=== PATIENT | female | born 1995 | race Caucasian/White ===

== ENCOUNTER 2017-01-26 19:51 | Emergency (ER) | payer MEDICAID, OTHER ==
[2017-01-26 19:53] VITALS: BP 139/65; PULSE 94; RESP 16; TEMP 98.6; O2SAT 97
--- NOTE | 2017-01-26 20:14 | PD ---
HPI Chief Complaint: Abdominal Pain Time Seen by Provider: 20:00 Travel History International Travel<30 days: No Contact w/Intl Traveler<30days: No Traveled to known affect area: No History of Present Illness HPI 21-year-old female presents for evaluation of abdominal pain. For the past 2 weeks she has had pain in the right upper quadrant region of the abdomen or the pain got worse over the past few days prompted evaluation. The pain is a sharp pain that is worse with coughing and moving primarily. The pain is relieved when she is sitting still. Pain is not postprandial. Denies nausea, vomiting, flank pain, dysuria, fevers, chills, vaginal bleeding or discharge. She has a slight cough for the past few days. She has no other complaints at this time. [facility] [place] Past Medical History Medical History: Denies Significant Hx Tetanus Vaccination: > 5 Years Influenza Vaccination: No ?: Not LMP: 01/03/17 Past Surgical History Surgical History: No Previous Surgery Social History Alcohol Use: Yes (RARELY ) Tobacco Use: No Substance Use: No Allergies-Medications (Allergen,Severity, Reaction): Coded Allergies: No Known Allergies (Unverified , 01/26/17) Reported Meds & Prescriptions Reported Meds & Active Scripts Active Naproxen 500 Mg Tab 500 Mg PO BID 10 Days Keflex (Cephalexin) 500 Mg Capsule 500 Mg PO Q8H 7 Days Review of Systems Except as stated in HPI: all other systems reviewed are Neg Physical Exam Narrative GENERAL: Well-developed well-nourished female in no acute distress SKIN: Warm and dry. HEAD: Atraumatic. Normocephalic. EYES: Pupils equal and round. No scleral icterus. No injection or drainage. ENT: No nasal bleeding or discharge. Mucous membranes pink and moist. NECK: Trachea midline. No JVD. CARDIOVASCULAR: Regular rate and rhythm. No murmur appreciated. RESPIRATORY: No accessory muscle use. Clear to auscultation. Breath sounds equal bilaterally. No crackles no wheezing or rhonchi. GASTROINTESTINAL: Abdomen soft, focal mild right upper quadrant tenderness without guarding. MUSCULOSKELETAL: No obvious deformities. Some tenderness to palpation to the right lower rib cage margin. NEUROLOGICAL: Awake and alert. No obvious cranial nerve deficits. Motor grossly within normal limits. Normal speech. PSYCHIATRIC: Appropriate mood and affect; insight and judgment normal. Data Data Last Documented VS Vital Signs Date Time Temp Pulse Resp B/P (MAP) Pulse Ox O2 Delivery O2 Flow Rate FiO2 01/26/17 19:53 98.6 94 16 139/65 (89) 97 Orders Orders Complete Blood Count With Diff (01/26/17 20:08) Comprehensive Metabolic Panel (01/26/17 20:08) Lipase (01/26/17 20:08) Urinalysis - C+S If Indicated (01/26/17 20:08) Us Abdomen Gallbladder (01/26/17 ) Ed Urine Pregnancytest Poc (01/26/17 20:08) Ketorolac Inj (Toradol Inj) (01/26/17 20:15) Iv Access Insert/Monitor (01/26/17 20:08) Urine Culture (01/26/17 20:40) Labs Laboratory Tests Test 01/26/17 20:31 01/26/17 20:40 White Blood Count 13.2 TH/MM3 Red Blood Count 4.52 MIL/MM3 Hemoglobin 12.2 GM/DL Hematocrit 38.1 % Mean Corpuscular Volume 84.3 FL Mean Corpuscular Hemoglobin 26.9 PG Mean Corpuscular Hemoglobin Concent 32.0 % Red Cell Distribution Width 13.5 % Platelet Count 358 TH/MM3 Mean Platelet Volume 9.3 FL Neutrophils (%) (Auto) 77.6 % Lymphocytes (%) (Auto) 15.5 % Monocytes (%) (Auto) 6.0 % Eosinophils (%) (Auto) 0.6 % Basophils (%) (Auto) 0.3 % Neutrophils # (Auto) 10.3 TH/MM3 Lymphocytes # (Auto) 2.1 TH/MM3 Monocytes # (Auto) 0.8 TH/MM3 Eosinophils # (Auto) 0.1 TH/MM3 Basophils # (Auto) 0.0 TH/MM3 CBC Comment DIFF FINAL Differential Comment Blood Urea Nitrogen 9 MG/DL Creatinine 0.62 MG/DL Random Glucose 100 MG/DL Total Protein 7.8 GM/DL Albumin 3.4 GM/DL Calcium Level 8.9 MG/DL Alkaline Phosphatase 71 U/L Aspartate Amino Transf (AST/SGOT) 10 U/L Alanine Aminotransferase (ALT/SGPT) LESS THAN 6 U/L Total Bilirubin 0.3 MG/DL Sodium Level 140 MEQ/L Potassium Level 3.6 MEQ/L Chloride Level 106 MEQ/L Carbon Dioxide Level 26.1 MEQ/L Anion Gap 8 MEQ/L Estimat Glomerular Filtration Rate 123 ML/MIN Lipase 139 U/L Urine Color YELLOW Urine Turbidity HAZY Urine pH 6.0 Urine Specific [place] 1.031 Urine Protein 30 mg/dL Urine Glucose (UA) NEG mg/dL Urine Ketones NEG mg/dL Urine Occult Blood NEG Urine Nitrite NEG Urine Bilirubin NEG Urine Urobilinogen 2.0 MG/DL Urine Leukocyte Esterase LARGE Urine RBC 6 /hpf Urine WBC 23 /hpf Urine Squamous Epithelial Cells 37 /hpf Urine Amorphous Sediment RARE Urine Mucus MANY /lpf Microscopic Urinalysis Comment CULTURE INDICATED MDM Medical Decision Making Medical Screen Exam Complete: Yes Emergency Medical Condition: Yes Medical Record Reviewed: Yes Differential Diagnosis Muscle strain, costochondritis, biliary colic, cholecystitis, renal stone, colitis, appendicitis Narrative Course This is a 21-year-old female who is a cough for several days he has had pain in the right lower rib cage/right upper quadrant is worse with movement and coughing and relieved when she sits still. Plan is for basic lab work, urinalysis, right upper quadrant ultrasound. Ultrasound reveals a markedly contracted gallbladder there is no evidence of any shadowing stones or cholecystitis. Her white count is slightly elevated at 13.2 with 77.6% neutrophils. Urinalysis does reveal large leukocytes with 23 wbc's with some degree of contaminant as her 37 squamous epithelial cells. Her pain very much appears musculoskeletal examination and treated as such with coarse NSAIDs. She will be given Keflex pending urine culture results. Discussed signs and symptoms noted [place] return to the emergency room. She is stable for discharge. Diagnosis Primary Impression: Rib pain on right side Additional Impressions: Right upper quadrant abdominal pain Pyuria Additional Instructions: Medication as prescribed. Avoid straining, heavy lifting. Rest. Follow-up with primary care as needed and return for any acutely no worsening symptoms such as intractable pain, fevers, persistent vomiting or diarrhea. Med/Other Pt SpecificInfo: Prescription(s) given Scripts Naproxen (Naproxen) 500 Mg Tab 500 MG PO BID for 10 Days, #20 TAB 0 Refills Prov: Alexi Blanco MD 01/26/17 Cephalexin (Keflex) 500 Mg Capsule 500 MG PO Q8H for Infection for 7 Days, #21 CAP 0 Refills Prov: Alexi Blanco MD 11/20/17 Disposition: 01 DISCHARGE HOME Condition: Stable Shannon,Cale P. PA Jan 26, 2017 20:14
[2017-01-26] MEDS ORDERED: KETOROLAC TROMETHAMINE 30 MG/ML (IVP) VIAL IV PUSH ONE (20:15)
[2017-01-26 20:50] LABS: AUTOMATED NEUTROPHIL # 10.3 TH/MM3 (1.8-7.7); BASOPHIL % 0.3 % (0.0-2.0); EOSINOPHIL # 0.1 TH/MM3 (0-0.4); EOSINOPHIL % 0.6 % (0.0-4.0); HEMATOCRIT 38.1 % (35.0-46.0); HEMO FLAGS DIFF FINAL; LYMPH % 15.5 % (9.0-44.0); LYMPHOCYTE # 2.1 TH/MM3 (1.0-4.8); MEAN CELL VOLUME 84.3 FL (80.0-100.0); MEAN CORPUSCULAR HEMOGLOBIN 26.9 PG (27.0-34.0); NEUT % 77.6 % (16.0-70.0); PLATELET COUNT 358 TH/MM3 (150-450); RED BLOOD COUNT 4.52 MIL/MM3 (4.00-5.30); RED CELL DISTRIBUTION WIDTH 13.5 % (11.6-17.2); WHITE BLOOD COUNT 13.2 TH/MM3 (4.0-11.0)
[2017-01-26 20:57] LABS: BLOOD, URINE NEG (NEG); COMMENT (UR) CULTURE INDICATED; CULTURE IF INDICATED CULTURE INDICATED; GLUCOSE,URINE NEG (NEG); KETONE, URINE NEG (NEG); MUCUS URINE MANY /lpf (OCC); NITRITE,URINE NEG (NEG); SQUAMOUS EPITHELIAL CELL URINE 37 /hpf (0-5); URINE COLOR YELLOW (YELLW/STRAW)
[2017-01-26 21:20] LABS: ALT (GPT) LESS THAN 6 U/L (9-42); ANION GAP 8 MEQ/L (5-15); AST (GOT) 10 U/L (16-38); BICARBONATE 26.1 MEQ/L (21.0-32.0); BLOOD UREA NITROGEN 9 MG/DL (7-18); CHLORIDE 106 MEQ/L (98-107); GLOMERULAR FILTRATION RATE 123 ML/MIN (>89); POTASSIUM 3.6 MEQ/L (3.5-5.1); SODIUM (NA) 140 MEQ/L (136-145)
[2017-01-26 21:23] LABS: ALKALINE PHOSPHATASE 71 U/L (45-117); TOTAL BILIRUBIN ADULT 0.3 MG/DL (0.2-1.0)
--- NOTE | 2017-01-26 21:52 | RADRPT ---
EXAM DATE/TIME: 01/26/2017 20:53 [place] COMPARISON: No previous studies available for comparison. INDICATIONS : Right upper quadrant pain. MEDICAL HISTORY : Right upper quadrant pain. SURGICAL HISTORY : None. ENCOUNTER: Initial ACUITY: 2 weeks PAIN SCORE: 6/10 LOCATION: Right upper quadrant MEASUREMENTS: LIVER: 14.7 cm length COMMON DUCT: 3 mm RIGHT KIDNEY: 9.6 x 3.8 x 3.5 cm FINDINGS: LIVER: Normal echotexture without focal lesion or ductal dilatation. Hepatopedal flow is seen in the portal vein. COMMON DUCT: No intraluminal mass or stone visualized. GALLBLADDER: The gallbladder is markedly contracted. No shadowing emanates from the lumen. No pericholecystic fl uid. Negative sonographic Hebert's sign. PANCREAS: The visualized portions are within normal limits. RIGHT KIDNEY: No evidence of hydronephrosis, stone, or mass. CONCLUSION: 1. Markedly contracted gallbladder in a fasting patient. No shadowing stones seen. 2. Normal dimension common hepatic duct. Osmany Osorio MD on January 26, 2017 at 21:42 Board Certified Radiologist. This report was verified electronically.
--- NOTE | 2017-01-26 21:57 | PD ---
Data Data Last Documented VS Vital Signs Date Time Temp Pulse Resp B/P (MAP) Pulse Ox O2 Delivery O2 Flow Rate FiO2 01/26/17 22:20 01/26/17 19:53 98.6 94 16 97 Orders Orders Complete Blood Count With Diff (01/26/17 20:08) Comprehensive Metabolic Panel (01/26/17 20:08) Lipase (01/26/17 20:08) Urinalysis - C+S If Indicated (01/26/17 20:08) Us Abdomen Gallbladder (01/26/17 ) Ed Urine Pregnancytest Poc (01/26/17 20:08) Ketorolac Inj (Toradol Inj) (01/26/17 20:15) Iv Access Insert/Monitor (01/26/17 20:08) Urine Culture (01/26/17 20:40) Ed Discharge Order (01/26/17 22:16) Labs Laboratory Tests Test 01/26/17 20:31 11 20:40 White Blood Count 13.2 TH/MM3 Red Blood Count 4.52 MIL/MM3 Hemoglobin 12.2 GM/DL Hematocrit 38.1 % Mean Corpuscular Volume 84.3 FL Mean Corpuscular Hemoglobin 26.9 PG Mean Corpuscular Hemoglobin Concent 32.0 % Red Cell Distribution Width 13.5 % Platelet Count 358 TH/MM3 Mean Platelet Volume 9.3 FL Neutrophils (%) (Auto) 77.6 % Lymphocytes (%) (Auto) 15.5 % Monocytes (%) (Auto) 6.0 % Eosinophils (%) (Auto) 0.6 % Basophils (%) (Auto) 0.3 % Neutrophils # (Auto) 10.3 TH/MM3 Lymphocytes # (Auto) 2.1 TH/MM3 Monocytes # (Auto) 0.8 TH/MM3 Eosinophils # (Auto) 0.1 TH/MM3 Basophils # (Auto) 0.0 TH/MM3 CBC Comment DIFF FINAL Differential Comment Blood Urea Nitrogen 9 MG/DL Creatinine 0.62 MG/DL Random Glucose 100 MG/DL Total Protein 7.8 GM/DL Albumin 3.4 GM/DL Calcium Level 8.9 MG/DL Alkaline Phosphatase 71 U/L Aspartate Amino Transf (AST/SGOT) 10 U/L Alanine Aminotransferase (ALT/SGPT) LESS THAN 6 U/L Total Bilirubin 0.3 MG/DL Sodium Level 140 MEQ/L Potassium Level 3.6 MEQ/L Chloride Level 106 MEQ/L Carbon Dioxide Level 26.1 MEQ/L Anion Gap 8 MEQ/L Estimat Glomerular Filtration Rate 123 ML/MIN Lipase 139 U/L Urine Color YELLOW Urine Turbidity HAZY Urine pH 6.0 Urine Specific [place] 1.031 Urine Protein 30 mg/dL Urine Glucose (UA) NEG mg/dL Urine Ketones NEG mg/dL Urine Occult Blood NEG Urine Nitrite NEG Urine Bilirubin NEG Urine Urobilinogen 2.0 MG/DL Urine Leukocyte Esterase LARGE Urine RBC 6 /hpf Urine WBC 23 /hpf Urine Squamous Epithelial Cells 37 /hpf Urine Amorphous Sediment RARE Urine Mucus MANY /lpf Microscopic Urinalysis Comment CULTURE INDICATED MDM Medical Record Reviewed: Yes Supervised Visit with YURIDIA: Yes Narrative Course CBC & BMP Diagram 01/26/17 20:31 Total Protein 7.8, Albumin 3.4, Calcium Level 8.9, Alkaline Phosphatase 71, Aspartate Amino Transf (AST/SGOT) 10 L, Alanine Aminotransferase (ALT/SGPT) LESS THAN 6 L, Total Bilirubin 0.3 Last Impressions Gall Bladder Ultrasound 01/26/17 0000 Signed Impressions: Service Date/Time: Thursday, January 26, 2017 20:53 - CONCLUSION: 1. Markedly contracted gallbladder in a fasting patient. No shadowing stones seen. 2. Normal dimension common hepatic duct. Osmany Osorio MD On exam the patient's right costal margin is somewhat tender. She reiterates pain primarily with changes of position such that a musculoskeletal etiology is considered most probable the patient is therefore ready for discharge. Return precautions discussed. Please refer Cale Ortega's note. Scripts Naproxen (Naproxen) 500 Mg Tab 500 MG PO BID for 10 Days, #20 TAB 0 Refills Prov: Alexi Blanco MD 01/26/17 Cephalexin (Keflex) 500 Mg Capsule 500 MG PO Q8H for Infection for 7 Days, #21 CAP 0 Refills Prov: Alexi Blanco MD 01/26/17 Alexi Blanco MD Jan 26, 2017 21:57
[2017-01-26] MEDS ORDERED: CEPH-460 PO (22:05)
[2017-01-26] MEDS ORDERED: NAPR500T2 PO (22:06)
== END 2017-01-26 22:31 | disposition home or self-care (01) ==
LOC: NEPE 19:51
DX: R07.81 Pleurodynia (principal); R10.11 Right upper quadrant pain; N39.0 Urinary tract infection, site not specified; B96.89 Other specified bacterial agents as the cause of diseases classified elsewhere; R05 Cough
CPT/HCPCS: 76705; 80053; 81001; 83690; 84703; 85025; 87086; 96374; 99285; J1885

== ENCOUNTER 2017-04-17 23:29 | Emergency (ER) | payer OTHER ==
[~2017-04-17] VITALS: Ht 160 cm; Wt 52.5 kg
[~2017-04-17 23:29] MED LIST: CEPH-460 PO; NAPR500T2 PO
[2017-04-17 23:31] VITALS: BP 134/66; PULSE 127; RESP 16; TEMP 102.4; O2SAT 99
[2017-04-17 23:45] VITALS: BP 114/56; PULSE 119; RESP 18; O2SAT 99
[2017-04-18] MEDS ORDERED: ACETAMINOPHEN 325 MG TAB PO ONE (00:30)
[2017-04-18] MEDS ORDERED: CLINDAMYCIN 150 MG CAP PO ONE (01:00)
[2017-04-18] MEDS ORDERED: guaiFENesin/CODEINE SYRUP 200 MG/20 MG/10 ML CUP PO ONE (01:00)
[2017-04-18] MEDS ORDERED: DEXAMETHASONE SOD PHOS 4 MG/ML VIAL IM ONE (01:00)
[2017-04-18] MEDS ORDERED: diphenhydrAMINE HCL ELIXIR 12.5 MG/5 ML CUP PO ONE (01:15)
[2017-04-18 01:21] VITALS: BP 109/66; PULSE 121; RESP 18; O2SAT 97
[2017-04-18 01:51] VITALS: TEMP 100.4
--- NOTE | 2017-04-18 02:02 | PD ---
HPI Chief Complaint: Cold / Flu Symptoms Time Seen by Provider: 23:44 Travel History International Travel<30 days: No Contact w/Intl Traveler<30days: No Traveled to known affect area: No History of Present Illness HPI Patient is a 21-year-old female with 3 days of sore throat swelling to the neck tightness in her throat cough fever she took Motrin and Tylenol with minimal relief of her febrile symptoms but then she feels malaise pain of throat swelling to the neck denies sick contact [facility] Past Medical History Medical History: Denies Significant Hx Influenza Vaccination: No ?: Not LMP: DEPO SHOT Past Surgical History Surgical History: No Previous Surgery Social History Alcohol Use: Yes (RARELY ) Tobacco Use: No Substance Use: No Allergies-Medications (Allergen,Severity, Reaction): Coded Allergies: No Known Allergies (Unverified , 01/26/17) Reported Meds & Prescriptions Reported Meds & Active Scripts Active Review of Systems Except as stated in HPI: all other systems reviewed are Neg HENT: Positive: Sore Throat, Rhinorrhea, Congestion Respiratory: Positive: Cough Physical Exam Narrative GENERAL: appears uncomfortable and is febrile SKIN: Warm and dry. HEAD: Atraumatic. Normocephalic. EYES: Pupils equal and round. No scleral icterus. No injection or drainage. ENT: No nasal bleeding or discharge. Patient has swollen tonsils bilaterally that are touching the uvula bilateral symmetrical exudate NECK: Trachea midline. No JVD. Neck is swollen lymphadenopathy he left greater than right submental nodes swollen CARDIOVASCULAR: Regular rate and rhythm. RESPIRATORY: No accessory muscle use. Clear to auscultation. Breath sounds equal bilaterally. GASTROINTESTINAL: Abdomen soft, non-tender, nondistended. Hepatic and splenic margins not palpable. MUSCULOSKELETAL: Extremities left wrist without clubbing, cyanosis, or edema. No obvious deformities. NEUROLOGICAL: Awake and alert. No obvious cranial nerve deficits. Motor grossly within normal limits. Five out of 5 muscle strength in the arms and legs. Normal speech. PSYCHIATRIC: Appropriate mood and affect; insight and judgment normal. Data Data Last Documented VS Vital Signs Date Time Temp Pulse Resp B/P (MAP) Pulse Ox O2 Delivery O2 Flow Rate FiO2 04/18/17 01:51 100.4 04/18/17 01:21 121 18 97 Room Air Orders Orders Influenzae A/B Antigen (04/17/17 23:44) Group A Rapid Strep Screen (04/17/17 23:44) Acetaminophen (Tylenol) (04/18/17 00:30) Clindamycin (Cleocin) (04/18/17 01:00) Dexamethasone Inj (Decadron Inj) (04/18/17 01:00) Guaifen-Cod 200-20 Mg/10ml Liq (Robituss (04/18/17 01:00) Diphenhydramine Liq (Benadryl Liq) (04/18/17 01:15) Strep Culture (Group A) (04/18/17 00:19) Ed Discharge Order (04/18/17 03:09) MDM Medical Decision Making Medical Screen Exam Complete: Yes Emergency Medical Condition: Yes Differential Diagnosis Patient tonsillitis versus strep pharyngitis versus tracheitis versus influenza Narrative Course Patient is obviously has severe tonsillitis with swelling and lymphadenopathy of the neck anterior left greater than right exudate on her tonsils I give her clindamycin and Decadron IM for the swelling of her posterior pharynx of the tonsils there is no signs of peritonsillar abscess it is just tonsillitis there is symmetrically swollen patient is given clindamycin and Decadron Robitussin- AC Benadryl and is discharged with the same scrips to follow-up Diagnosis Primary Impression: Tonsillitis Additional Impression: Pharyngitis Qualified Codes: J02.9 - Acute pharyngitis, unspecified Patient Instructions: General Instructions, Tonsillitis (ED) Scripts Abbcrpqr-Heiupdzzfjmwbot-Seskckdqp Liq (Magic Mouthwash Adult Liq) 120 Ml Susp 5 ML SWISH-SWAL ACHS for Mouth sores, #120 ML 0 Refills Each 5mL contains: Nystatin 200,000units, Diphenhydramine 4.25mg, Viscous Lidocaine 10mg, Nguyen syrup 0.8 mL Prov: Daquan Saavedra MD 04/18/17 Clindamycin (Clindamycin) 300 Mg Cap 300 MG PO TID for Infection, #21 CAP 0 Refills Prov: Daquan Saavedra MD 04/18/17 Daquan Saavedra MD Apr 18, 2017 02:02
[2017-04-18] MEDS ORDERED: MAGICADU2 SWISH-SWAL (03:15)
[2017-04-18] MEDS ORDERED: CLIN300C5 PO (03:15)
== END 2017-04-18 03:22 | disposition home or self-care (01) ==
LOC: NEPE 23:29
DX: J03.90 Acute tonsillitis, unspecified (principal); J02.9 Acute pharyngitis, unspecified; R59.1 Generalized enlarged lymph nodes
CPT/HCPCS: 87081; 87804; 87880; 96372; 99283; J1100

== ENCOUNTER 2017-07-15 02:27 | Emergency (ER) | payer OTHER ==
[~2017-07-15] VITALS: Ht 160 cm; Wt 55.0 kg
[~2017-07-15 02:27] MED LIST changes: -CEPH-460 PO; +CLIN300C5 PO; +MAGICADU2 SWISH-SWAL; -NAPR500T2 PO
[2017-07-15 02:30] VITALS: BP 131/70; PULSE 115; RESP 18; TEMP 99.1; O2SAT 100
--- NOTE | 2017-07-15 03:56 | PD ---
HPI Chief Complaint: Cold / Flu Symptoms Time Seen by Provider: 03:54 Travel History International Travel<30 days: No Contact w/Intl Traveler<30days: No Traveled to known affect area: No History of Present Illness HPI The patient is a 22 year old female who presents to the [facility] emergency department with a history of cough, congestion, sore throat, body aches that began 2 days ago. The patient reports that her cough has been productive of clear sputum. She reports that her nasal discharge has been clear in color. She reports having subjective fevers. She reports having a bitemporal headache. She denies having any neck pain or stiffness. She reports having nausea and vomiting 2. She reports that she has been taking Advil and NyQuil for the symptoms. She denies having any diarrhea. On review of systems otherwise, the patient denies having chest pain, shortness of breath , abdominal pain, diarrhea, urinary symptoms, or neurologic symptoms. LMP June 11, 2017. She reports that her cycles are irregular as she is on the Depo-Provera shot. She denies any possibility of being . [facility], [facility] Past Medical History Narrative Medical The patient's past medical history is reportedly none. Medical History: Denies Significant Hx Tetanus Vaccination: Unknown Influenza Vaccination: No ?: Not LMP: 06/11/2017 Past Surgical History Surgical History: No Previous Surgery Social History Alcohol Use: Yes (RARELY ) Tobacco Use: No Substance Use: No Allergies-Medications (Allergen,Severity, Reaction): Coded Allergies: No Known Allergies (Unverified , 07/15/17) Reported Meds & Prescriptions Reported Meds & Active Scripts Active Magic Mouthwash Adult Liq (Multi-Ingredient Mouthwash/Gargle) 120 Ml Susp 5 Ml SWISH-SWAL ACHS Each 5mL contains: Nystatin 200,000units, Diphenhydramine 4.25mg, Viscous Lidocaine 10mg, Nguyen syrup 0.8 mL Clindamycin (Clindamycin HCl) 300 Mg Cap 300 Mg PO TID Review of Systems Except as stated in HPI: all other systems reviewed are Neg General / Constitutional: No: Fever Eyes: No: Visual changes HENT: Positive: Headaches, Sore Throat, Rhinorrhea, Congestion, No: Neck Stiffness, Neck Pain Cardiovascular: No: Chest Pain or Discomfort Respiratory: Positive: Cough, No: Shortness of Breath Gastrointestinal: Positive: Nausea, Vomiting, No: Diarrhea, Abdominal Pain Genitourinary: No: Dysuria Musculoskeletal: Positive: Myalgias, Pain Skin: No Rash Neurologic: No: Weakness, Focal Abnormalities, Change in Mentation, Slurred Speech, Sensory Disturbance Psychiatric: No: Depression Endocrine: No: Polydipsia Hematologic/Lymphatic: No: Easy Bruising Physical Exam Narrative General: The patient is a well-developed well-nourished female in no acute distress Head and Neck exam: Head is normocephalic atraumatic. Eyes: EOMI, pupils are equal round and reactive to light. Nose: Midline septum with erythematous edematous nasal mucosa and clear nasal discharge Mouth: Dentition unremarkable. Moist mucus membranes. Posterior oropharynx is mildly erythematous with mild tonsillar hypertrophy, no exudates or palatal petechiae. Uvula midline. Airway patent. Neck: No palpable lymphadenopathy. No nuchal rigidity. No thyromegaly. Cardiovascular: Sinus tachycardia in the low 100 without murmurs, gallops, or rubs. No pulse deficit to the extremities on simultaneous auscultation and palpation of her radial artery. Lungs: Clear to auscultation bilaterally. No wheezes, rhonchi, or rales. Abdomen: Soft, without tenderness to palpation in all 4 quadrants of the abdomen. No guarding, rebound, or rigidity. Normal bowel sounds are audible. No tenderness on palpation of McBurney's point. Extremities: No clubbing, cyanosis, or edema. No calf tenderness on palpation peer Back: No costovertebral angle tenderness to palpation. Neurologic Exam: Grossly nonfocal. Skin Exam: No rash noted. Intact skin that is warm and dry. Data Data Last Documented VS Vital Signs Date Time Temp Pulse Resp B/P (MAP) Pulse Ox O2 Delivery O2 Flow Rate FiO2 07/15/17 02:30 99.1 115 18 131/70 (90) 100 MDM Medical Decision Making Medical Screen Exam Complete: Yes Emergency Medical Condition: Yes Medical Record Reviewed: Yes Differential Diagnosis Upper respiratory infection, versus pneumonia, versus influenza, versus strep pharyngitis Narrative Course During the course of the patient's emergency department visit, the patient's history, examination, and differential diagnosis were reviewed with the patient. The patient's symptoms are most consistent with a viral upper respiratory infection. The patient was initially provided ibuprofen for low-grade fever. The patient was given oral rehydration. The patient denies having any nausea at this time. The patient was instructed that upper respiratory infections are usually viral and do not require antibiotic for treatment. She was instructed that her body will produce antibodies the infection and it will run its course on its own. I recommended in the meantime symptom control measures. She was instructed to push fluids and get plenty of rest. The patient was instructed to take ibuprofen or Tylenol as needed for fever or discomfort. The patient will be given a prescription for Zofran in case the nausea returns. Diagnosis Primary Impression: Upper respiratory infection Qualified Codes: J06.9 - Acute upper respiratory infection, unspecified Referrals: [facility] 1 week Primary Care Physician 1 week Patient Instructions: General Instructions, Upper Respiratory Infection (ED) Additional Instructions: She was instructed to push fluids and get plenty of rest. The patient was instructed to take ibuprofen or Tylenol as needed for fever or discomfort. The patient will be given a prescription for Zofran in case the nausea returns. Med/Other Pt SpecificInfo: Prescription(s) given Scripts Ondansetron Odt (Zofran Odt) 4 Mg Tab 4 MG SL Q6HR Y for Nausea/Vomiting, #7 TAB 0 Refills Prov: Emma Linares MD 07/15/17 Disposition: 01 DISCHARGE HOME Condition: Stable Emma Linares MD July 15, 2017 03:56
[2017-07-15] MEDS ORDERED: ZOFR4TAB3 SL (04:58)
[2017-07-15] MEDS ORDERED: IBUPROFEN 400 MG TAB PO ONE (05:00)
[2017-07-15 05:37] VITALS: BP 118/58; PULSE 106; RESP 14; O2SAT 99
== END 2017-07-15 05:46 | disposition home or self-care (01) ==
LOC: NEPE 02:27
DX: J06.9 Acute upper respiratory infection, unspecified (principal)
CPT/HCPCS: 99283